=== PATIENT | male | born 1935 | race Caucasian/White ===

== ENCOUNTER 2021-07-13 19:08 | Inpatient (IN) | payer MEDICARE ==
[2021-07-13 20:01] LABS: #Basophils 0.1 10x3/uL (0.0-0.2); #Eosinphils 0.4 10x3/uL (0.0-0.5); #Monocytes 1.1 10x3/uL (0.0-1.1); #Neutrophils 13.9 10x3/uL (1.5-8.4); %Basophils 0.3 % (0.0-2.0); %Lymphocytes 12.3 % (18.0-47.0); %Monocytes 6.2 % (0.0-10.0); %Neutrophils 78.7 % (40.0-75.0); Hemoglobin 12.5 g/dL (13.5-17.5); Mean Corpuscular HGB CONC 32.8 g/dL (32.0-36.0); Mean Corpuscular Hemoglobin 32.2 pg (27.0-33.0); Mean Corpuscular Volume 98.2 fl (81.2-95.1); Mean Platelet Volume 10.3 fl (7.4-10.4); Platelet Count 218 10x3/uL (150-450); RBC Distribution Width 11.9 % (11.5-14.5); Red Blood Cell (RBC) Count 3.88 10x6/uL (4.32-5.72); White Blood Cell (WBC) Count 17.7 10x3/uL (3.5-10.5)
[2021-07-13 20:21] LABS: ALT (SGPT) 11 U/L (8-55); AST (SGOT) 14 U/L (5-34); Albumin 4.2 g/dL (3.4-4.8); Alkaline Phosphatase 44 U/L (40-110); Anion Gap 17 mmol/L (10-20); BUN (Urea Nitrogen) 43 mg/dL (8.4-25.7); Bilirubin, Total 0.6 mg/dL (0.2-1.2); Calc. Creatinine Clearance 0 mL/min (70-130); Calcium 8.9 mg/dL (7.8-10.44); Carbon Dioxide 23 mmol/L (23-31); Chloride 100 mmol/L (98-107); Globulin 2.6 g/dL (2.4-3.5); Glucose 244 mg/dL (83-110); Potassium 3.9 mmol/L (3.5-5.1); Protein, Total 6.8 g/dL (5.8-8.1); Sodium 136 mmol/L (136-145)
[2021-07-13 21:03] LABS: SARS-CoV-2 NAA Rapid Test Not Detected (NotDetected)
[2021-07-13 21:06] LABS: Bilirubin Neg (Negative); Blood, Urine Negative (Negative); Clarity Slightly Cloudy (Clear); Glucose, Urine (Dipstick) 100 mg/dL (Negative); Ketone, Urine Negative (Negative); Leukocyte Negative (Negative); Nitrite Negative (Negative); Protein, Urine (Dipstick) Negative (Neg-Trace); Urobilinogen Normal mg/dL (Less than 2)
[2021-07-13] MEDS ORDERED: cefTRIAXone\\ROCEPHIN 2 GM VIAL ONE ×2 (21:56)
[2021-07-13] MEDS ORDERED: Azithromycin 500 MG VIAL ONE (21:57)
[2021-07-13] MEDS ORDERED: Ondansetron PF 4 MG/2 ML Vial IVP PRN (22:59)
[2021-07-13] MEDS ORDERED: Ondansetron ODT 4 MG TAB PO PRN (22:59)
[2021-07-13] MEDS ORDERED: HumaLOG 300 UNITS/3 ML VIAL SC PRN (23:05)
[2021-07-13] MEDS ORDERED: Dextrose 50% Abboject 50 ML SYRINGE SLOW IVP PRN (23:05)
[2021-07-13] MEDS ORDERED: Dextrose 5% in Water 1,000 ML IV PRN (23:05)
[2021-07-13 23:29] VITALS: BMI 23.2
[2021-07-13] MEDS: Sodium Chloride 0.9% 1,000 ML IV SCH (23:43)
[2021-07-14] MEDS: hydrALAZINE 20 MG/ML VIAL SLOW IVP PRN (00:34)
[2021-07-14] MEDS: Acetaminophen 325 MG TAB PO PRN ×2 (01:22→10:03)
[2021-07-14 04:36] LABS: #Basophils 0.1 10x3/uL (0.0-0.2); #Eosinphils 0.2 10x3/uL (0.0-0.5); #Monocytes 1.3 10x3/uL (0.0-1.1); #Neutrophils 13.8 10x3/uL (1.5-8.4); %Basophils 0.3 % (0.0-2.0); %Eosinophils 1.1 % (0.0-6.0); %Lymphocytes 9.4 % (18.0-47.0); %Monocytes 7.4 % (0.0-10.0); %Neutrophils 81.2 % (40.0-75.0); Hemoglobin 11.4 g/dL (13.5-17.5); Mean Corpuscular HGB CONC 33.1 g/dL (32.0-36.0); Mean Corpuscular Hemoglobin 31.9 pg (27.0-33.0); Mean Corpuscular Volume 96.4 fl (81.2-95.1); Mean Platelet Volume 10.4 fl (7.4-10.4); Platelet Count 205 10x3/uL (150-450); RBC Distribution Width 11.8 % (11.5-14.5); Red Blood Cell (RBC) Count 3.57 10x6/uL (4.32-5.72); White Blood Cell (WBC) Count 16.9 10x3/uL (3.5-10.5)
[2021-07-14 05:04] LABS: ALT (SGPT) 9 U/L (8-55); AST (SGOT) 12 U/L (5-34); Albumin 3.8 g/dL (3.4-4.8); Alkaline Phosphatase 41 U/L (40-110); Anion Gap 13 mmol/L (10-20); BUN (Urea Nitrogen) 36 mg/dL (8.4-25.7); Bilirubin, Total 0.4 mg/dL (0.2-1.2); Calc. Creatinine Clearance 40 mL/min (70-130); Calcium 8.6 mg/dL (7.8-10.44); Carbon Dioxide 23 mmol/L (23-31); Chloride 105 mmol/L (98-107); Globulin 2.5 g/dL (2.4-3.5); Glucose 196 mg/dL (83-110); Magnesium 1.8 mg/dL (1.6-2.6); Potassium 3.9 mmol/L (3.5-5.1); Protein, Total 6.3 g/dL (5.8-8.1); Sodium 137 mmol/L (136-145)
[2021-07-14] MEDS: HYDROcodone/Acetaminophen 5/325 mg Tablet PO PRN ×3 (05:42→18:33)
[2021-07-14] MEDS: Sodium Chloride 0.9% 1,000 ML IV SCH ×3 (05:43→20:55)
[2021-07-14] MEDS: Amitriptyline HCl 25 MG TAB PO SCH ×3 (07:09→20:54)
[2021-07-14] MEDS ORDERED: [UNRECOGNIZED DRUG - OTHER] PO SCH (09:00)
[2021-07-14] MEDS ORDERED: HYDROCHLOROTHIAZIDE PO SCH (09:00)
[2021-07-14] MEDS ORDERED: Metoprolol Tartrate 25 MG TAB PO SCH (09:00)
[2021-07-14] MEDS ORDERED: VALSARTAN PO SCH (09:00)
[2021-07-14] MEDS ORDERED: Aspirin 81 mg Enteric Coated Tablet PO SCH (09:00)
[2021-07-14] MEDS: Aspirin 325 mg Enteric Coated Tablet PO SCH (09:50)
[2021-07-14] MEDS: Ubidecarenone 50 MG CAP PO SCH (09:51)
[2021-07-14] MEDS: Finasteride 5 MG TAB PO SCH (09:51)
[2021-07-14] MEDS: Enoxaparin Sodium 40 MG/0.4 ML SYRINGE SC SCH (09:51)
[2021-07-14] MEDS: Hydrochlorothiazide 25 MG TAB PO SCH (09:51)
[2021-07-14] MEDS: Rosuvastatin 10 MG TAB PO SCH (09:51)
[2021-07-14] MEDS: Valsartan 80 MG TAB PO SCH (09:52)
[2021-07-14 12:40] LABS: Hemoglobin A1c 7.6 % (4.0-6.0)
[2021-07-14 15:59] LABS: Troponin I 0.014 ng/mL (< 0.028)
[2021-07-14] MEDS ORDERED: Atorvastatin Calcium 40 MG TAB PO SCH (21:00)
[2021-07-14] MEDS: Azithromycin 500 MG in Sodium Chloride 0.9% 250 ML 250 ML IVPB SCH (21:02)
[2021-07-14] MEDS: cefTRIAXone\\ROCEPHIN 1 GM in Sodium Chloride 0.9% 100 ML IVPB SCH (23:05)
[2021-07-15 05:14] LABS: Anion Gap 13 mmol/L (10-20); BUN (Urea Nitrogen) 22 mg/dL (8.4-25.7); CRP (Inflammatory) 11.79 mg/dL (= or < 0.5); Calc. Creatinine Clearance 41 mL/min (70-130); Calcium 8.2 mg/dL (7.8-10.44); Carbon Dioxide 23 mmol/L (23-31); Chloride 107 mmol/L (98-107); Glucose 159 mg/dL (83-110); Magnesium 1.8 mg/dL (1.6-2.6); Phosphorus 2.2 mg/dL (2.3-4.7); Sodium 139 mmol/L (136-145)
[2021-07-15 05:16] LABS: #Basophils 0.1 10x3/uL (0.0-0.2); #Eosinphils 0.3 10x3/uL (0.0-0.5); #Monocytes 1.1 10x3/uL (0.0-1.1); #Neutrophils 7.6 10x3/uL (1.5-8.4); %Basophils 0.5 % (0.0-2.0); %Eosinophils 2.8 % (0.0-6.0); %Lymphocytes 15.6 % (18.0-47.0); %Monocytes 9.8 % (0.0-10.0); %Neutrophils 70.9 % (40.0-75.0); Hemoglobin 11.2 g/dL (13.5-17.5); Mean Corpuscular HGB CONC 32.7 g/dL (32.0-36.0); Mean Corpuscular Hemoglobin 32.1 pg (27.0-33.0); Mean Corpuscular Volume 98.3 fl (81.2-95.1); Mean Platelet Volume 10.3 fl (7.4-10.4); Platelet Count 182 10x3/uL (150-450); RBC Distribution Width 12.3 % (11.5-14.5); Red Blood Cell (RBC) Count 3.49 10x6/uL (4.32-5.72); White Blood Cell (WBC) Count 10.7 10x3/uL (3.5-10.5)
[2021-07-15] MEDS: Sodium Chloride 0.9% 1,000 ML IV SCH ×3 (06:25→16:45)
[2021-07-15] MEDS: Levothyroxine Sodium 112 MCG TAB PO SCH (06:25)
[2021-07-15] MEDS: Aspirin 325 mg Enteric Coated Tablet PO SCH (08:56)
[2021-07-15] MEDS: Ubidecarenone 50 MG CAP PO SCH (08:56)
[2021-07-15] MEDS: Rosuvastatin 10 MG TAB PO SCH (08:56)
[2021-07-15] MEDS: Finasteride 5 MG TAB PO SCH (08:56)
[2021-07-15] MEDS: Hydrochlorothiazide 25 MG TAB PO SCH (08:56)
[2021-07-15] MEDS: Enoxaparin Sodium 40 MG/0.4 ML SYRINGE SC SCH (08:56)
[2021-07-15] MEDS: Valsartan 80 MG TAB PO SCH (08:57)
[2021-07-15] MEDS: Milk Of Magnesia 30 ML UDCUP PO SCH (09:06)
[2021-07-15] MEDS: Senokot S 8.6-50 MG TAB PO SCH ×2 (09:06→21:23)
[2021-07-15] MEDS: Polyethylene Glycol 3350 17 GM Packet PO SCH (09:06)
[2021-07-15 13:04] LABS: Hemoglobin A1c 7.5 % (4.0-6.0)
[2021-07-15] MEDS: hydrALAZINE 20 MG/ML VIAL SLOW IVP PRN (17:05)
[2021-07-15 19:40] LABS: Legionella Urinary Ag Negative (Negative); Strep pneumo Urine Ag NEGATIVE (NEGATIVE)
[2021-07-15] MEDS ORDERED: Sodium Chloride 0.9% 250 ML 250 ML ONE (20:21)
[2021-07-15] MEDS: Azithromycin 500 MG in Sodium Chloride 0.9% 250 ML 250 ML IVPB SCH (21:23)
[2021-07-15] MEDS: Amitriptyline HCl 25 MG TAB PO SCH (21:23)
[2021-07-15] MEDS: HYDROcodone/Acetaminophen 5/325 mg Tablet PO PRN (23:28)
[2021-07-15] MEDS: cefTRIAXone\\ROCEPHIN 1 GM in Sodium Chloride 0.9% 100 ML IVPB SCH (23:30)
[2021-07-16 04:33] LABS: #Eosinphils 0.3 10x3/uL (0.0-0.5); #Neutrophils 5.8 10x3/uL (1.5-8.4); %Basophils 0.3 % (0.0-2.0); %Eosinophils 3.6 % (0.0-6.0); %Lymphocytes 20.9 % (18.0-47.0); %Monocytes 10.5 % (0.0-10.0); %Neutrophils 64.4 % (40.0-75.0); Hemoglobin 9.9 g/dL (13.5-17.5); Mean Corpuscular HGB CONC 32.6 g/dL (32.0-36.0); Mean Corpuscular Hemoglobin 31.9 pg (27.0-33.0); Mean Corpuscular Volume 98.1 fl (81.2-95.1); Mean Platelet Volume 10.5 fl (7.4-10.4); Platelet Count 166 10x3/uL (150-450); RBC Distribution Width 12.1 % (11.5-14.5); White Blood Cell (WBC) Count 9.1 10x3/uL (3.5-10.5)
[2021-07-16 05:08] LABS: Anion Gap 11 mmol/L (10-20); BUN (Urea Nitrogen) 19 mg/dL (8.4-25.7); Calc. Creatinine Clearance 46 mL/min (70-130); Calcium 7.9 mg/dL (7.8-10.44); Carbon Dioxide 22 mmol/L (23-31); Chloride 109 mmol/L (98-107); Glucose 146 mg/dL (83-110); Magnesium 1.7 mg/dL (1.6-2.6); Phosphorus 2.4 mg/dL (2.3-4.7); Sodium 138 mmol/L (136-145)
[2021-07-16] MEDS: Levothyroxine Sodium 112 MCG TAB PO SCH (06:39)
[2021-07-16] MEDS: Sodium Chloride 0.9% 1,000 ML IV SCH ×2 (07:20→07:48)
[2021-07-16] MEDS: Enoxaparin Sodium 40 MG/0.4 ML SYRINGE SC SCH (08:20)
[2021-07-16] MEDS: hydrALAZINE 20 MG/ML VIAL SLOW IVP PRN ×3 (08:21→20:08)
[2021-07-16] MEDS: Rosuvastatin 10 MG TAB PO SCH (08:21)
[2021-07-16] MEDS: Valsartan 80 MG TAB PO SCH (08:21)
[2021-07-16] MEDS: Ubidecarenone 50 MG CAP PO SCH (08:21)
[2021-07-16] MEDS: Finasteride 5 MG TAB PO SCH (08:21)
[2021-07-16] MEDS: Hydrochlorothiazide 25 MG TAB PO SCH (08:21)
[2021-07-16] MEDS: Aspirin 325 mg Enteric Coated Tablet PO SCH (08:21)
[2021-07-16] MEDS: Milk Of Magnesia 30 ML UDCUP PO SCH (08:24)
[2021-07-16] MEDS: Senokot S 8.6-50 MG TAB PO SCH ×2 (08:24→21:19)
[2021-07-16] MEDS: Polyethylene Glycol 3350 17 GM Packet PO SCH (08:24)
[2021-07-16] MEDS: Acetaminophen 325 MG TAB PO PRN ×2 (08:33→21:23)
[2021-07-16] MEDS ORDERED: Fluticasone Propionate Nasal Spray 16 gm Bottle NASAL SCH (10:45)
[2021-07-16] MEDS ORDERED: Amlodipine 5 MG TAB PO SCH (10:45)
[2021-07-16] MEDS ORDERED: Loratadine 10 MG TAB PO SCH (10:45)
[2021-07-16] MEDS: HYDROcodone/Acetaminophen 5/325 mg Tablet PO PRN ×2 (11:28→20:07)
[2021-07-16] MEDS: Amitriptyline HCl 25 MG TAB PO SCH (20:07)
[2021-07-16] MEDS: Azithromycin 500 MG in Sodium Chloride 0.9% 250 ML 250 ML IVPB SCH (21:24)
[2021-07-16] MEDS: Fluticasone Propionate Nasal Spray 16 gm Bottle NASAL SCH (23:25)
[2021-07-16] MEDS: cefTRIAXone\\ROCEPHIN 1 GM in Sodium Chloride 0.9% 100 ML IVPB SCH (23:26)
[2021-07-17 04:04] LABS: #Basophils 0.1 10x3/uL (0.0-0.2); #Eosinphils 0.5 10x3/uL (0.0-0.5); #Neutrophils 4.7 10x3/uL (1.5-8.4); %Basophils 0.9 % (0.0-2.0); %Eosinophils 5.8 % (0.0-6.0); %Lymphocytes 21.5 % (18.0-47.0); %Monocytes 12.4 % (0.0-10.0); %Neutrophils 59.1 % (40.0-75.0); Hemoglobin 10.6 g/dL (13.5-17.5); Mean Corpuscular HGB CONC 33.2 g/dL (32.0-36.0); Mean Corpuscular Hemoglobin 32.4 pg (27.0-33.0); Mean Corpuscular Volume 97.6 fl (81.2-95.1); Mean Platelet Volume 10.3 fl (7.4-10.4); Platelet Count 187 10x3/uL (150-450); RBC Distribution Width 12.2 % (11.5-14.5); Red Blood Cell (RBC) Count 3.27 10x6/uL (4.32-5.72)
[2021-07-17 04:07] LABS: Anion Gap 12 mmol/L (10-20); BUN (Urea Nitrogen) 17 mg/dL (8.4-25.7); Calc. Creatinine Clearance 44 mL/min (70-130); Calcium 8.3 mg/dL (7.8-10.44); Carbon Dioxide 24 mmol/L (23-31); Chloride 107 mmol/L (98-107); Glucose 148 mg/dL (83-110); Magnesium 1.8 mg/dL (1.6-2.6); Phosphorus 2.8 mg/dL (2.3-4.7); Potassium 4.4 mmol/L (3.5-5.1); Sodium 139 mmol/L (136-145)
[2021-07-17] MEDS: hydrALAZINE 20 MG/ML VIAL SLOW IVP PRN ×2 (04:33→08:17)
[2021-07-17] MEDS: Acetaminophen 325 MG TAB PO PRN (04:58)
[2021-07-17] MEDS: Levothyroxine Sodium 112 MCG TAB PO SCH (04:58)
[2021-07-17] MEDS: Valsartan 80 MG TAB PO SCH (08:15)
[2021-07-17] MEDS: HYDROcodone/Acetaminophen 5/325 mg Tablet PO PRN (08:16)
[2021-07-17] MEDS: Rosuvastatin 10 MG TAB PO SCH (08:16)
[2021-07-17] MEDS: Ubidecarenone 50 MG CAP PO SCH (08:16)
[2021-07-17] MEDS: Finasteride 5 MG TAB PO SCH (08:16)
[2021-07-17] MEDS: Hydrochlorothiazide 25 MG TAB PO SCH (08:16)
[2021-07-17] MEDS: Aspirin 325 mg Enteric Coated Tablet PO SCH (08:16)
[2021-07-17] MEDS: Loratadine 10 MG TAB PO SCH (08:16)
[2021-07-17] MEDS: Polyethylene Glycol 3350 17 GM Packet PO SCH (08:17)
[2021-07-17] MEDS: Fluticasone Propionate Nasal Spray 16 gm Bottle NASAL SCH ×2 (08:17→20:56)
[2021-07-17] MEDS: Milk Of Magnesia 30 ML UDCUP PO SCH (08:17)
[2021-07-17] MEDS: Enoxaparin Sodium 40 MG/0.4 ML SYRINGE SC SCH (08:17)
[2021-07-17] MEDS: Senokot S 8.6-50 MG TAB PO SCH ×2 (08:17→20:47)
[2021-07-17] MEDS ORDERED: Amlodipine 5 MG TAB PO SCH (09:00)
[2021-07-17] MEDS ORDERED: Fioricet 325/50/40 mg Tablet PO SCH (09:15)
[2021-07-17] MEDS ORDERED: Metoprolol Tartrate 25 MG TAB PO SCH (09:30)
[2021-07-17] MEDS: Metoprolol Tartrate 25 MG TAB PO SCH (20:47)
[2021-07-17] MEDS: Amitriptyline HCl 25 MG TAB PO SCH (20:47)
[2021-07-17] MEDS: Amlodipine 5 MG TAB PO SCH (20:47)
[2021-07-17] MEDS: Fioricet 325/50/40 mg Tablet PO PRN (20:56)
[2021-07-17] MEDS: Azithromycin 500 MG in Sodium Chloride 0.9% 250 ML 250 ML IVPB SCH (22:34)
[2021-07-17] MEDS: cefTRIAXone\\ROCEPHIN 1 GM in Sodium Chloride 0.9% 100 ML IVPB SCH (23:25)
[2021-07-18 04:08] LABS: #Basophils 0.1 10x3/uL (0.0-0.2); #Eosinphils 0.5 10x3/uL (0.0-0.5); #Monocytes 0.8 10x3/uL (0.0-1.1); #Neutrophils 5.3 10x3/uL (1.5-8.4); %Basophils 0.6 % (0.0-2.0); %Eosinophils 5.8 % (0.0-6.0); %Monocytes 9.2 % (0.0-10.0); Hemoglobin 11.2 g/dL (13.5-17.5); Mean Corpuscular HGB CONC 32.8 g/dL (32.0-36.0); Mean Corpuscular Hemoglobin 32.4 pg (27.0-33.0); Mean Corpuscular Volume 98.6 fl (81.2-95.1); Mean Platelet Volume 10.2 fl (7.4-10.4); Platelet Count 226 10x3/uL (150-450); Red Blood Cell (RBC) Count 3.46 10x6/uL (4.32-5.72); White Blood Cell (WBC) Count 8.6 10x3/uL (3.5-10.5)
[2021-07-18 04:38] LABS: Anion Gap 15 mmol/L (10-20); BUN (Urea Nitrogen) 17 mg/dL (8.4-25.7); Calc. Creatinine Clearance 44 mL/min (70-130); Carbon Dioxide 23 mmol/L (23-31); Chloride 105 mmol/L (98-107); Glucose 129 mg/dL (83-110); Magnesium 1.8 mg/dL (1.6-2.6); Phosphorus 2.9 mg/dL (2.3-4.7); Potassium 3.9 mmol/L (3.5-5.1); Sodium 139 mmol/L (136-145)
[2021-07-18] MEDS: Levothyroxine Sodium 112 MCG TAB PO SCH (05:46)
[2021-07-18] MEDS: hydrALAZINE 20 MG/ML VIAL SLOW IVP PRN (05:47)
[2021-07-18] MEDS: Hydrochlorothiazide 25 MG TAB PO SCH (08:40)
[2021-07-18] MEDS: Aspirin 325 mg Enteric Coated Tablet PO SCH (08:40)
[2021-07-18] MEDS: Amlodipine 5 MG TAB PO SCH ×2 (08:41→21:57)
[2021-07-18] MEDS: Finasteride 5 MG TAB PO SCH (08:41)
[2021-07-18] MEDS: Senokot S 8.6-50 MG TAB PO SCH ×2 (08:41→21:58)
[2021-07-18] MEDS: Ubidecarenone 50 MG CAP PO SCH (08:42)
[2021-07-18] MEDS: Loratadine 10 MG TAB PO SCH (08:43)
[2021-07-18] MEDS: Milk Of Magnesia 30 ML UDCUP PO SCH (08:43)
[2021-07-18] MEDS: Rosuvastatin 10 MG TAB PO SCH (08:43)
[2021-07-18] MEDS: Polyethylene Glycol 3350 17 GM Packet PO SCH (08:43)
[2021-07-18] MEDS: Fioricet 325/50/40 mg Tablet PO PRN ×2 (08:44→23:05)
[2021-07-18] MEDS: Enoxaparin Sodium 40 MG/0.4 ML SYRINGE SC SCH (08:45)
[2021-07-18] MEDS: Metoprolol Tartrate 25 MG TAB PO SCH ×2 (08:45→21:57)
[2021-07-18] MEDS: Valsartan 80 MG TAB PO SCH (08:45)
[2021-07-18] MEDS: Fluticasone Propionate Nasal Spray 16 gm Bottle NASAL SCH ×2 (08:46→23:06)
[2021-07-18] MEDS ORDERED: Valsartan 80 MG TAB PO SCH (17:00)
[2021-07-18] MEDS ORDERED: hydrALAZINE 25 MG TAB PO SCH (17:00)
[2021-07-18] MEDS ORDERED: Sodium Chloride 0.9% 250 ML 250 ML ONE (21:17)
[2021-07-18] MEDS: hydrALAZINE 25 MG TAB PO SCH (21:56)
[2021-07-18] MEDS: Azithromycin 500 MG in Sodium Chloride 0.9% 250 ML 250 ML IVPB SCH (21:58)
[2021-07-18] MEDS: Amitriptyline HCl 25 MG TAB PO SCH (21:58)
[2021-07-18] MEDS: cefTRIAXone\\ROCEPHIN 1 GM in Sodium Chloride 0.9% 100 ML IVPB SCH (23:07)
[2021-07-19 05:25] LABS: #Basophils 0.1 10x3/uL (0.0-0.2); #Eosinphils 0.4 10x3/uL (0.0-0.5); #Monocytes 0.7 10x3/uL (0.0-1.1); #Neutrophils 3.3 10x3/uL (1.5-8.4); %Basophils 0.8 % (0.0-2.0); %Eosinophils 7.2 % (0.0-6.0); %Lymphocytes 25.3 % (18.0-47.0); %Neutrophils 54.4 % (40.0-75.0); Hemoglobin 10.4 g/dL (13.5-17.5); Mean Corpuscular HGB CONC 32.5 g/dL (32.0-36.0); Mean Corpuscular Hemoglobin 31.7 pg (27.0-33.0); Mean Corpuscular Volume 97.6 fl (81.2-95.1); Mean Platelet Volume 10.6 fl (7.4-10.4); Platelet Count 209 10x3/uL (150-450); RBC Distribution Width 11.9 % (11.5-14.5); Red Blood Cell (RBC) Count 3.28 10x6/uL (4.32-5.72)
[2021-07-19] MEDS: Levothyroxine Sodium 112 MCG TAB PO SCH (06:28)
[2021-07-19 06:42] LABS: Anion Gap 14 mmol/L (10-20); BUN (Urea Nitrogen) 22 mg/dL (8.4-25.7); Calc. Creatinine Clearance 43 mL/min (70-130); Calcium 8.4 mg/dL (7.8-10.44); Carbon Dioxide 22 mmol/L (23-31); Chloride 105 mmol/L (98-107); Glucose 126 mg/dL (83-110); Magnesium 1.8 mg/dL (1.6-2.6); Phosphorus 3.5 mg/dL (2.3-4.7); Potassium 3.6 mmol/L (3.5-5.1); Sodium 137 mmol/L (136-145)
[2021-07-19] MEDS ORDERED: Valsartan 80 MG TAB PO SCH (09:00)
[2021-07-19] MEDS: Fluticasone Propionate Nasal Spray 16 gm Bottle NASAL SCH (10:24)
[2021-07-19] MEDS: hydrALAZINE 25 MG TAB PO SCH (10:24)
[2021-07-19] MEDS: Metoprolol Tartrate 25 MG TAB PO SCH (10:24)
[2021-07-19] MEDS: Ubidecarenone 50 MG CAP PO SCH (10:24)
[2021-07-19] MEDS: Rosuvastatin 10 MG TAB PO SCH (10:25)
[2021-07-19] MEDS: Amlodipine 5 MG TAB PO SCH (10:26)
[2021-07-19] MEDS: Enoxaparin Sodium 40 MG/0.4 ML SYRINGE SC SCH (10:26)
[2021-07-19] MEDS: Aspirin 325 mg Enteric Coated Tablet PO SCH (10:26)
[2021-07-19] MEDS: Loratadine 10 MG TAB PO SCH (10:26)
[2021-07-19] MEDS: Finasteride 5 MG TAB PO SCH (10:26)
[2021-07-19] MEDS: Milk Of Magnesia 30 ML UDCUP PO SCH ×2 (10:26→10:42)
[2021-07-19] MEDS: Polyethylene Glycol 3350 17 GM Packet PO SCH ×2 (10:27→10:43)
[2021-07-19] MEDS: Hydrochlorothiazide 25 MG TAB PO SCH (10:36)
[2021-07-19] MEDS: Senokot S 8.6-50 MG TAB PO SCH (10:40)
[2021-07-19 12:22] VITALS: BP 179/65; TEMP 98.5
== END 2021-07-19 15:08 | disposition home or self-care (01) | DRG 194 ==
LOC: CSHERS 19:08 → CSHTELE 19:09 → INTOOBSV 22:59 → OBSVTOIN 22:59 → CSHTELE 07-17 21:54
PROVIDERS: ADMIT Internal Medicine; ATTEND Family Medicine
DX: J18.0 Bronchopneumonia, unspecified organism (principal); N17.9 Acute kidney failure, unspecified; I47.1 Supraventricular tachycardia; J44.0 Chronic obstructive pulmonary disease with (acute) lower respiratory infection; K21.9 Gastro-esophageal reflux disease without esophagitis; I25.10 Atherosclerotic heart disease of native coronary artery without angina pectoris; Z20.822 Contact with and (suspected) exposure to COVID-19; N18.9 Chronic kidney disease, unspecified; I48.0 Paroxysmal atrial fibrillation; I12.9 Hypertensive chronic kidney disease with stage 1 through stage 4 chronic kidney disease, or unspecified chronic kidney disease; E03.9 Hypothyroidism, unspecified; E78.5 Hyperlipidemia, unspecified; E11.22 Type 2 diabetes mellitus with diabetic chronic kidney disease; Z95.5 Presence of coronary angioplasty implant and graft
CPT/HCPCS: 0240U; 36415; 36416; 71045; 71250; 80048; 80053; 81003; 83036; 83605; 83735; 84100; 84484; 85025; 85379; 86140; 87040; 87086; 87449; 87899; 93005; 93010; 93306; 96365; 96367; J0360; J0456; J0696; J1650; J1815; J3490; J7050